=== PATIENT | male | born 1980 | race American Indian/Alaskan Native ===

== ENCOUNTER 2018-01-29 21:16 | Emergency (ER) | payer MEDICAID ==
[2018-01-29 21:26] VITALS: BP 151/88
[2018-01-29] MEDS ORDERED: HYDROcod/ACET 5/325 Prepack 6 PO STA (21:32)
[2018-01-29] MEDS ORDERED: CLINDAMYCIN 150 MG CAPSULE PO STA (21:32)
--- NOTE | 2018-01-29 21:36 | ED Physician Documentation ---
PD HPI HEENT - Stated complaint Stated Complaint: TOOTH PX - Chief complaint Chief Complaint: Heent - History obtained from History obtained from: Patient - History of Present Illness Timing - onset: Other (He has a broken tooth on the right maxilla for a long time but severe pain only over the last couple of days with a sensation of facial swelling but no fevers. Pain radiates to the right ear.) Review of Systems Constitutional: denies: Fever, Chills Nose: denies: Rhinorrhea / runny nose, Congestion Throat: denies: Sore throat PD PAST MEDICAL HISTORY - Past Medical History Past Medical History: No - Past Surgical History Past Surgical History: Yes General: Other - Present Medications Home Medications: Ambulatory Orders Medication Instructions Recorded Confirmed Clindamycin [Cleocin] 300 mg PO Q6H 10 Days capsule 01/29/18 HYDROcod/ACETAM 5/325 [[place] 5/325] 1 - 2 ea PO Q6H PRN #15 tablet 01/29/18 - Allergies Allergies/Adverse Reactions: Allergies Allergy/AdvReac Type Severity Reaction Status Date / Time No Known Drug Allergies Allergy Verified 01/29/18 21:26 - Social History Does the pt smoke?: Yes Smoking Status: Current every day smoker Does the pt drink ETOH?: Yes Does the pt have substance abuse?: No - Immunizations Immunizations are current?: Yes - POLST Patient has POLST: No PD ED PE NORMAL - Vitals Vital signs reviewed: Yes - General General: Alert and oriented X 3, No acute distress - HEENT HEENT: Ears normal, Other (Multiple cavities with a large one from #3 that is tender but no obvious facial swelling or trismus.) - Neuro Neuro: Alert and oriented X 3, Normal speech Results - Vitals Vitals: Vital Signs - 24 hr 01/29/18 21:23 Temperature 36.5 C Heart Rate 83 Respiratory 18 Rate Blood Pressure 151/88 H O2 Saturation 99 Oxygen O2 Source Room air Departure - Departure Disposition: 01 Home, Self Care Clinical Impression: Pain due to dental caries Condition: Good Record reviewed to determine appropriate education?: Yes Instructions: ED Tooth Pain Prescriptions: Clindamycin [Cleocin] 300 mg PO Q6H 10 Days capsule HYDROcod/ACETAM 5/325 [[place] 5/325] 1 - 2 ea PO Q6H PRN #15 tablet PRN Reason: Pain Comments: It is very important that she follow-up with a dentist. When it comes to dental problems like yours, the emergency department can only offer a short- term solution to your long-term problem. A couple of low cost options for dental care include: [facility] in [place], calls [phone] for an appointment Or [facility] in [place], call [phone] for an appointment. The closest [facility] is in [place], belonging to the [facility]. The phone number there is [phone]. I do not know if they do dental care there. Your blood pressure was elevated today on check into the emergency department. This does not mean that you have hypertension, it is a common phenomenon to come to the emergency department and have elevated blood pressure. I recommend that you see your primary care physician within the week to have it rechecked when you are feeling better. Do not drink or drive while taking narcotic pain medication. Note that many narcotic pain relievers also contain Tylenol/acetaminophen. Please ensure that your total dose of acetaminophen from all sources does not exceed 3 g (3000 mg) per day. You may get constipated while on this medication. Take a stool softener such as Colace twice a day while you are on it. Also add an [id number] laxative such as senna or MiraLAX on any day that you do not have a bowel movement. If you received a narcotic pain medication or sedative while in the emergency department, do not drive for the next 24 hours.
== END 2018-01-29 21:42 | disposition home or self-care (01) ==
LOC: ED 21:16
DX: K02.9 Dental caries, unspecified (principal); F17.200 Nicotine dependence, unspecified, uncomplicated; R03.0 Elevated blood-pressure reading, without diagnosis of hypertension
CPT/HCPCS: 99283; A9270

== ENCOUNTER 2018-03-14 22:29 | Emergency (ER) | payer MEDICAID ==
[2018-03-14 22:40] VITALS: BP 137/94
--- NOTE | 2018-03-14 22:41 | ED Physician Documentation ---
PD HPI HEENT - Stated complaint Stated Complaint: TOOTH PX - Chief complaint Chief Complaint: General - History obtained from History obtained from: Patient - History of Present Illness Timing - onset: How many months ago (1) Timing - duration: Months (has had this for amonth and is trying to get appt or insurance clearance through his [place] insurance to get to a dentist. Slow process per patient.) Timing - details: Gradual onset, Waxing and waning Location: Tooth (right upper molar) Improves: No: Medication Worsens: Position, Temperatures Associated symptoms: No: Fever, Congestion, Rhinorrhea, Facial swelling Recently seen: No: Clinic Review of Systems Constitutional: denies: Fever, Chills Throat: reports: Dental pain / toothache. denies: Sore throat, Swollen tonsils PD PAST MEDICAL HISTORY - Past Medical History Cardiovascular: None Respiratory: None Neuro: None - Past Surgical History Past Surgical History: Yes General: Other - Present Medications Home Medications: Ambulatory Orders Medication Instructions Recorded Confirmed Clindamycin [Cleocin] 300 mg PO Q6H 10 Days capsule 01/29/18 HYDROcod/ACETAM 5/325 [[place] 5/325] 1 - 2 ea PO Q6H PRN #15 tablet 01/29/18 Doxycycline Monohydrate 100 mg PO BID #14 tablet 03/14/18 HYDROcod/ACETAM 5/325 [[place] 5/325] 1 tab PO Q6H PRN #15 tablet 03/14/18 Naproxen [Naprosyn] 500 mg PO BID PRN #20 tablet 03/14/18 - Allergies Allergies/Adverse Reactions: Allergies Allergy/AdvReac Type Severity Reaction Status Date / Time No Known Drug Allergies Allergy Verified 03/14/18 22:40 - Social History Does the pt smoke?: Yes Smoking Status: Current every day smoker Does the pt drink ETOH?: Yes Does the pt have substance abuse?: No - Immunizations Immunizations are current?: Yes - POLST Patient has POLST: No PD ED PE NORMAL - Vitals Vital signs reviewed: Yes - General General: Alert and oriented X 3, No acute distress, Well developed/nourished - HEENT HEENT: Pharynx benign, Other (no local swelling nor flucutance. ). No: Dentition benign (poor dentition. 1/2 broken tooth right upper. ) - Neck Neck: Supple, no meningeal sign, No adenopathy - Derm Derm: Normal color, Warm and dry - Neuro Neuro: Alert and oriented X 3, No motor deficit, Normal speech Results - Vitals Vitals: Oxygen O2 Source Room air PD MEDICAL DECISION MAKING - ED course Complexity details: reviewed old records, considered differential (dental caries and broken tooth. Able to put some Cavit into the area and with PO meds, and he says the pain is about gone. ), d/w patient Departure - Departure Disposition: 01 Home, Self Care Clinical Impression: Pain due to dental caries, Dental infection Condition: Stable Record reviewed to determine appropriate education?: Yes Instructions: ED Abscess Dental Prescriptions: Doxycycline Monohydrate 100 mg PO BID #14 tablet HYDROcod/ACETAM 5/325 [[place] 5/325] 1 tab PO Q6H PRN #15 tablet PRN Reason: Pain Naproxen [Naprosyn] 500 mg PO BID PRN #20 tablet PRN Reason: Pain Comments: [facility] dental clinic in [place] - call to set up appt or get one through your [place] insurance/providers. Naproxen twice daily, doxycycline antibiotic twice daily - both for a week. Add hydrocodone as needed for pains. Local treatment for the tooth such as the temporary filling material or oil of clove or such for numbing the tooth. Forms: Activity restrictions Discharge Date/Time: 03/14/18 23:36
[2018-03-14] MEDS ORDERED: HYDROcod/ACETAM 5/325 MG TABLET PO STA (22:50)
[2018-03-14] MEDS ORDERED: DOXYCYCLINE 100 MG TABLET PO STA (22:50)
[2018-03-14] MEDS ORDERED: NAPROXEN 250 MG TABLET PO STA (22:50)
[2018-03-14] MEDS ORDERED: HYDROcod/ACET 5/325 Prepack 4 PO STA (23:27)
== END 2018-03-14 23:36 | disposition home or self-care (01) ==
LOC: ED 22:29
DX: K02.9 Dental caries, unspecified (principal); F17.200 Nicotine dependence, unspecified, uncomplicated; S02.5XXA Fracture of tooth (traumatic), initial encounter for closed fracture
CPT/HCPCS: 99283; A9270

== ENCOUNTER 2018-05-08 17:28 | Emergency (ER) | payer MEDICAID ==
[2018-05-08 17:39] VITALS: BP 130/82
--- NOTE | 2018-05-08 17:47 | ED Physician Documentation ---
PD HPI HEENT - Stated complaint Stated Complaint: RT SIDE TOOTH PX - Chief complaint Chief Complaint: Heent - History obtained from History obtained from: Patient - History of Present Illness Timing - onset: Today (He has been having some issues with a right maxillary molar, there is a large cavity. He has been seen here a few times for it and gets better after antibiotics but then recurs. The pain came back yesterday or today and it is milder this time.) Review of Systems Constitutional: denies: Fever, Chills Throat: denies: Sore throat Cardiac: denies: Chest pain / pressure, Palpitations PD PAST MEDICAL HISTORY - Past Medical History Past Medical History: No Cardiovascular: None Respiratory: None Endocrine/Autoimmune: None GI: None : None HEENT: None Psych: None Musculoskeletal: None Derm: None - Past Surgical History Past Surgical History: Yes General: Other - Present Medications Home Medications: Ambulatory Orders Medication Instructions Recorded Confirmed Doxycycline Hyclate 100 mg PO BID #14 tablet 05/08/18 HYDROcod/ACETAM 5/325 [[place] 5/325] 1 - 2 ea PO Q6H PRN #10 tablet 05/08/18 Naproxen 500 mg PO BID PRN #30 tablet 05/08/18 - Allergies Allergies/Adverse Reactions: Allergies Allergy/AdvReac Type Severity Reaction Status Date / Time No Known Drug Allergies Allergy Verified 05/08/18 17:39 - Social History Does the pt smoke?: Yes Smoking Status: Current every day smoker Does the pt drink ETOH?: Yes Does the pt have substance abuse?: No - Immunizations Immunizations are current?: Yes - POLST Patient has POLST: No PD ED PE NORMAL - Vitals Vital signs reviewed: Yes - General General: Alert and oriented X 3, No acute distress - HEENT HEENT: Other (Large cavity #2 anterior with some tenderness but no facial swelling.) - Neck Neck: Supple, no meningeal sign, No bony TTP - Neuro Neuro: Alert and oriented X 3, Normal speech Results - Vitals Vitals: Vital Signs - 24 hr 05/08/18 17:36 Temperature 36.8 C Heart Rate 84 Respiratory 16 Rate Blood Pressure 130/82 H O2 Saturation 97 Oxygen O2 Source Room air PD MEDICAL DECISION MAKING - Sepsis Event Vital Signs: Vital Signs - 24 hr 05/08/18 17:36 Temperature 36.8 C Heart Rate 84 Respiratory 16 Rate Blood Pressure 130/82 H O2 Saturation 97 Oxygen O2 Source Room air Departure - Departure Disposition: 01 Home, Self Care Clinical Impression: Pain due to dental caries, Dental infection Condition: Good Record reviewed to determine appropriate education?: Yes Instructions: ED Tooth Pain Prescriptions: Doxycycline Hyclate 100 mg PO BID #14 tablet HYDROcod/ACETAM 5/325 [[place] 5/325] 1 - 2 ea PO Q6H PRN #10 tablet PRN Reason: Pain Naproxen 500 mg PO BID PRN #30 tablet PRN Reason: Pain Comments: This problem will continue to recur until you see a dentist and have it fixed by a dentist. Please see dentist as soon as possible. Your blood pressure was elevated today on check into the emergency department. This does not mean that you have hypertension, it is a common phenomenon to come to the emergency department and have elevated blood pressure. I recommend that you see your primary care physician within the week to have it rechecked when you are feeling better.
== END 2018-05-08 17:49 | disposition home or self-care (01) ==
LOC: ED 17:28
DX: K04.7 Periapical abscess without sinus (principal); K02.9 Dental caries, unspecified; K08.89 Other specified disorders of teeth and supporting structures; F17.200 Nicotine dependence, unspecified, uncomplicated; R03.0 Elevated blood-pressure reading, without diagnosis of hypertension
CPT/HCPCS: 99283